=== PATIENT | male | born 1955 | race Caucasian/White ===

== ENCOUNTER 2017-07-24 23:58 | Emergency (ER) | payer OTHER ==
[~2017-07-24] VITALS: Ht 180.3 cm; Wt 204.1 kg
[2017-07-25] MEDS ORDERED: ACYCLOVIR 400400 MG PO (00:12)
[2017-07-25] MEDS ORDERED: KEFLEX500 M1 PO (01:45)
[2018-03-08] MEDS ORDERED: LASIX 40 MG TAB40 M2 PO (01:16)
[2018-03-08] MEDS ORDERED: CIPRO500 MG PO (01:16)
[2018-03-08] MEDS ORDERED: POTASSIUM20 PO (01:17)
[2018-03-08] MEDS ORDERED: CO Q-10100 MG PO (01:35)
[2018-03-08] MEDS ORDERED: GINKGO BILOBA60 MG PO (01:36)
[2018-03-08] MEDS ORDERED: APPLE CIDER VI300 MG PO (01:37)
[2018-03-08] MEDS ORDERED: ZINC50 MG PO (01:38)
[2018-03-08] MEDS ORDERED: CENTRUM GARLIC300 MG PO (01:38)
[2018-03-08] MEDS ORDERED: ECHINAC-GOLDEN1 EACH PO (01:39)
[2018-03-08] MEDS ORDERED: OMEGA-31000 M1 PO (01:40)
[2018-03-08] MEDS ORDERED: SAW PALMETTO500 MG PO (01:42)
[2018-03-08] MEDS ORDERED: L-LYSINE1000 M1 PO (01:42)
[2018-03-08] MEDS ORDERED: VITAMIN B-12500 MCG PO (01:43)
[2018-03-08] MEDS ORDERED: BEE POLLEN550 MG PO (01:43)
[2018-03-08] MEDS ORDERED: VITAMINC500 PO (01:44)
[2018-03-08] MEDS ORDERED: KEFLEX500 M1 PO (05:20)
[2018-03-08] MEDS ORDERED: MOBIC15 MG PO (05:20)
== END 2017-07-25 01:50 | disposition home or self-care (01) ==
LOC: ER 23:58
DX: N49.2 Inflammatory disorders of scrotum (principal)